=== PATIENT | male | born 1970 | race Caucasian/White ===

== ENCOUNTER 2021-09-27 07:58 | Emergency (ER) | payer OTHER ==
[~2021-09-27] VITALS: Ht 180.3 cm; Wt 145.2 kg
[2021-09-27] MEDS ORDERED: CODITUSSIN AC473 M1 PO (09:20)
[2021-09-27] MEDS ORDERED: ONDA4ODT MM (09:20)
== END 2021-09-27 10:33 | disposition home or self-care (01) ==
LOC: ER 07:58
DX: U07.1 COVID-19 (principal); Z23 Encounter for immunization
CPT/HCPCS: 99284-25; A9270; M0243; Q0243